=== PATIENT | female | born 1955 | race Caucasian/White ===

== ENCOUNTER 2024-12-31 04:16 | Day surgery (SDC) | payer OTHER ==
[~2024-12-31] VITALS: Ht 177.8 cm; Wt 84.5 kg
[2024-12-31] VITALS (236 sets, daily range): BP systolic 98–185; BP diastolic 47–101
[~2024-12-31 04:16] MED LIST: SODIUM CHLORIDE 0.9% 1,000 ML IV PRN
[2024-12-31] MEDS ORDERED: cloNIDine HCL 0.1 MG/TAB PO PRN (07:30)
[2024-12-31] MEDS ORDERED: SCOPOLAMINE 1.5 MG DIS TD PRN (07:30)
[2024-12-31] MEDS ORDERED: FAMOTIDINE 20 MG/TAB PO PRN (07:30)
[2024-12-31] MEDS ORDERED: diazePAM 5 MG/TAB PO PRN ×2 (07:30→08:30)
[2024-12-31] MEDS ORDERED: PANTOPRAZOLE SODIUM Sesquihydr 40 MG/TAB PO PRN (07:30)
[2024-12-31] MEDS ORDERED: LACTATED RINGER'S 1,000 ML IV PRN ×3 (07:30→19:00)
[2024-12-31] MEDS ORDERED: ALBUTEROL SULFATE 2.5 MG VIAL IN PRN (07:30)
[2024-12-31] MEDS ORDERED: CYANOCOBALAMIN 500 MCG/TAB ( B12) PO PRN (07:30)
[2024-12-31] MEDS ORDERED: DEXMEDETOMIDINE HCL IN SODIUM 100 ML IV SCH (07:35)
[2024-12-31] MEDS ORDERED: PHENYLEPHRINE HCL 10 MG in DEXTROSE 5% 250 ML IV SCH (07:35)
[2024-12-31] MEDS ORDERED: ASCORBIC ACID 4,000 MG in SODIUM CHLORIDE 0.9% 1,000 ML IV SCH (08:00)
[2024-12-31 09:05] LABS: BASO% 0.3 % (0-3); EOS% 0.5 % (0-8); HEMATOCRIT 40.7 % (37.0-47.0); HEMOGLOBIN 12.9 g/dl (12.0-16.0); IMMATURE GRANULOCYTES 0.2 % (0.0-5.0); LYMPH% 20.3 % (15-41); MEAN CELL VOLUME 89.6 fL CALC (80.0-100.0); MEAN CORPUSCULAR HGB 28.4 pG CALC (26.0-32.0); MEAN CORPUSCULAR HGB CONC 31.7 g/dL CAL (32.0-36.0); MONO% 8.4 % (2-13); NEUT# 4.51 thou/uL (2.00-7.15); NEUT% 70.3 % (42-76); RED BLOOD COUNT 4.54 mill/uL (4.20-5.60)
[2024-12-31] MEDS ORDERED: PREDNISONE10 MG PO (09:16)
[2024-12-31] MEDS ORDERED: LIDOCAINE HCL 1% (10MG/ML) 100 MG/10 ML MDV IV PRN (09:25)
[2024-12-31] MEDS ORDERED: cloNIDine HYDROCHLORIDE 100 MCG/ML 10 ML INJ IV PRN (09:25)
[2024-12-31] MEDS ORDERED: DiphenhydrAMINE HCL 50 MG/ML SDV IV PRN (09:25)
[2024-12-31] MEDS ORDERED: SUCCINYLCHOLINE CHLORIDE 20 MG/ML 10ML VIAL IV PRN (09:25)
[2024-12-31] MEDS ORDERED: diazePAM 5 MG/TAB VT PRN (09:25)
[2024-12-31] MEDS ORDERED: PROPOFOL 10 MG/ML 100ML VIAL IV PRN (09:25)
[2024-12-31] MEDS ORDERED: ONDANSETRON HCl 4 MG/2 ML SDV IV PRN ×3 (09:25→19:00)
[2024-12-31] MEDS ORDERED: LIDOCAINE HCL 1% (10MG/ML) 100 MG/10 ML MDV VT PRN ×2 (09:25)
[2024-12-31] MEDS ORDERED: SODIUM CHLORIDE 0.9% 1,000 ML IV PRN (09:25)
[2024-12-31] MEDS ORDERED: cloNIDine HCL 0.1 MG/TAB VT PRN (09:25)
[2024-12-31] MEDS ORDERED: NALTREXONE HCL 50 MG/TAB VT PRN (09:25)
[2024-12-31] MEDS ORDERED: OCTREOTIDE ACETATE 100 MCG/VIAL SDV SC PRN (09:25)
[2024-12-31] MEDS ORDERED: THIAMINE HCL 100 MG/ML 2ML VIAL IV PRN (09:25)
[2024-12-31] MEDS ORDERED: ROCURONIUM BROMIDE 10 MG/ML 5 ML VIAL IV PRN (09:25)
[2024-12-31] MEDS ORDERED: STERILE WATER FOR IRRIGATION 1,000 ML BTL IR PRN (09:25)
[2024-12-31] MEDS ORDERED: MIDAZOLAM HCL 2 MG/2 ML VIAL IV PRN ×3 (09:25→13:35)
[2024-12-31] MEDS ORDERED: PROPOFOL 100 ML IV PRN (09:25)
[2024-12-31] MEDS ORDERED: MAGNESIUM SULFATE HEPTAHYDRATE 100 ML IV PRN (09:25)
[2024-12-31 11:53] LABS: ALBUMIN 3.7 g/dL (3.2-5.0); BILIRUBIN, TOTAL 0.8 mg/dL (0.02-1.3); CREATININE 0.7 mg/dL (0.5-1.0); POTASSIUM 3.6 mmol/l (3.5-5.1); TOTAL PROTEIN 6.2 g/dL (6.3-8.2)
[2024-12-31] MEDS ORDERED: POTASSIUM CHLORIDE 20 MEQ/100 ML BAG IV PRN (12:20)
[2024-12-31] MEDS ORDERED: NALTREXONE50 MG PO (16:36)
[2024-12-31] MEDS ORDERED: CLONIDINE0.1 MG PO (16:37)
[2024-12-31] MEDS ORDERED: KLONOPIN2 MG PO (16:37)
[2024-12-31] MEDS ORDERED: PROMETHAZINE HCL 12.5 MG in SODIUM CHLORIDE 0.9% 50 ML IV PRN (19:00)
[2024-12-31] MEDS ORDERED: ACETAMINOPHEN 1,000 MG/100 ML VIAL IV PRN (19:00)
[2024-12-31] MEDS ORDERED: HALOPERIDOL LACTATE 5 MG/ML SDV IV PRN (19:00)
[2024-12-31] MEDS ORDERED: ACETAMINOPHEN 500 MG TAB PO PRN (19:00)
[2024-12-31] MEDS ORDERED: PROMETHAZINE HCL 25 MG in SODIUM CHLORIDE 0.9% 50 ML IV PRN (19:00)
[2024-12-31] MEDS ORDERED: KETOROLAC TROMETHAMINE 30 MG/ML SDV IV PRN (19:00)
[2024-12-31] MEDS ORDERED: PATIENT' OWN MED CONTROLLED 1 EA DOSE IV PRN (21:00)
[2024-12-31] MEDS ORDERED: cloNIDine HCL 0.1 MG/TAB PO SCH (23:00)
[2024-12-31] MEDS ORDERED: clonazePAM 1 MG/TAB PO PRN (23:00)
[2025-01-01] MEDS ORDERED: cloNIDine HCL 0.1 MG/TAB PO PRN (04:00)
[2025-01-01] MEDS ORDERED: clonazePAM 1 MG/TAB PO PRN ×2 (04:00→08:00)
[2025-01-01] MEDS ORDERED: NALTREXONE HCL 50 MG/TAB PO SCH (04:00)
[2025-01-01 04:59] LABS: BASO% 0.1 % (0-3); HEMOGLOBIN 14.1 g/dl (12.0-16.0); IMMATURE GRANULOCYTES 0.2 % (0.0-5.0); LYMPH% 8.2 % (15-41); MEAN CELL VOLUME 87.8 fL CALC (80.0-100.0); MEAN CORPUSCULAR HGB 28.8 pG CALC (26.0-32.0); MEAN CORPUSCULAR HGB CONC 32.8 g/dL CAL (32.0-36.0); NEUT# 7.85 thou/uL (2.00-7.15); NEUT% 87.5 % (42-76); RED BLOOD COUNT 4.9 mill/uL (4.20-5.60); RED CELL DISTRI WIDTH 12.9 % (11.5-15.5)
[2025-01-01 05:19] LABS: ALBUMIN 3.7 g/dL (3.2-5.0); BILIRUBIN, TOTAL 0.9 mg/dL (0.02-1.3); CREATININE 0.8 mg/dL (0.5-1.0); MAGNESIUM 2.3 mg/dL (1.6-2.3); POTASSIUM 4.2 mmol/l (3.5-5.1); TOTAL PROTEIN 6.3 g/dL (6.3-8.2)
[2025-01-01 06:13] VITALS: BP 142/61
[2025-01-01] MEDS ORDERED: cloNIDine HCL 0.1 MG/TAB PO SCH (08:00)
[2025-01-01] MEDS ORDERED: ACETAMINOPHEN 325 MG/TAB PO SCH (08:00)
[2025-01-01] MEDS ORDERED: PANTOPRAZOLE SODIUM Sesquihydr 40 MG/TAB PO SCH (08:00)
[2025-01-01] MEDS ORDERED: Cholecalciferol 2,000 UNIT/TAB PO PRN (09:00)
[2025-01-01] MEDS ORDERED: ACETAMINOPHEN 500 MG TAB PO PRN (09:00)
[2025-01-01] MEDS ORDERED: MAGNESIUM OXIDE 400 MG/TAB PO PRN (09:00)
[2025-01-01 15:19] VITALS: BP 166/65
[2025-01-01] MEDS ORDERED: PATIENT' OWN MED CONTROLLED 1 EA DOSE IV PRN (18:55)
[2025-01-01 19:21] VITALS: BP 166/65
[2025-01-01 21:29] VITALS: BP 151/61
[2025-01-02 02:44] VITALS: BP 173/66
[2025-01-02 05:37] LABS: BASO% 0.2 % (0-3); EOS% 0.1 % (0-8); HEMATOCRIT 48.2 % (37.0-47.0); HEMOGLOBIN 15.5 g/dl (12.0-16.0); IMMATURE GRANULOCYTES 0.4 % (0.0-5.0); LYMPH% 11.3 % (15-41); MEAN CELL VOLUME 88.9 fL CALC (80.0-100.0); MEAN CORPUSCULAR HGB 28.6 pG CALC (26.0-32.0); MEAN CORPUSCULAR HGB CONC 32.2 g/dL CAL (32.0-36.0); MONO% 7.5 % (2-13); NEUT# 10.4 thou/uL (2.00-7.15); NEUT% 80.5 % (42-76); RED BLOOD COUNT 5.42 mill/uL (4.20-5.60); RED CELL DISTRI WIDTH 13.1 % (11.5-15.5)
[2025-01-02 05:38] LABS: ALBUMIN 4.4 g/dL (3.2-5.0); CREATININE 0.7 mg/dL (0.5-1.0); POTASSIUM 4.5 mmol/l (3.5-5.1); TOTAL PROTEIN 7.5 g/dL (6.3-8.2)
[2025-01-02 05:45] LABS: BILIRUBIN, TOTAL 1.7 mg/dL (0.02-1.3)
[2025-01-02 07:12] VITALS: BP 174/68
[2025-01-02] MEDS ORDERED: PROMETHAZINE HCL 25 MG in SODIUM CHLORIDE 0.9% 50 ML IV PRN (08:25)
[2025-01-02] MEDS ORDERED: NALTREXONE HCL 50 MG/TAB PO SCH (08:30)
[2025-01-02] MEDS ORDERED: BISMUTH SUBSALICYLATE 262 MG CHW PO PRN (11:30)
[2025-01-02] MEDS ORDERED: cloNIDine HCL 0.1 MG/TAB PO SCH (23:00)
[2025-01-02] MEDS ORDERED: clonazePAM 1 MG/TAB PO PRN (23:00)
[2025-01-03] MEDS ORDERED: cloNIDine HCL 0.1 MG/TAB PO PRN (08:00)
[2025-01-03] MEDS ORDERED: clonazePAM 1 MG/TAB PO PRN (08:00)
== END 2025-01-02 14:30 | disposition home or self-care (01) | DRG 897 ==
LOC: MS2 04:16 → ANR 04:16 → MS2 04:20 → ANR 10:00 → MS2 16:20 → ANR 01-02 14:30
PROVIDERS: ATTEND Anesthesiology Critical Care Medicine
DX: F11.20 Opioid dependence, uncomplicated (principal)
CPT/HCPCS: J1100; J1200; J2354; J2405; J2550; J2704; J3411; J3475; J3480; J3490